=== PATIENT | female | born 1985 | race Caucasian/White ===

== ENCOUNTER 2018-10-23 04:02 | Inpatient (IN) | payer MEDICAID, OTHER ==
[2018-10-23] MEDS ORDERED: ZOFRAN IV PRN (04:05)
[2018-10-23] MEDS ORDERED: TUCKS PAD TP PRN (04:05)
[2018-10-23] MEDS ORDERED: DULCOLAX PR PRN (04:05)
[2018-10-23] MEDS ORDERED: LANSINOH TP PRN (04:05)
[2018-10-23] MEDS ORDERED: BENADRYL PO PRN (04:05)
[2018-10-23] MEDS ORDERED: PHENERGAN PO PRN (04:05)
[2018-10-23] MEDS ORDERED: NORCO 5/325 PO PRN (04:05)
[2018-10-23] MEDS ORDERED: MILK OF MAGNESIA PO PRN (04:05)
--- NOTE | 2018-10-23 04:29 | History and Physical Report ---
History of Present Illness Date of examination: 10/23/18 Date of admission: 10/23/18 04:02 Chief complaint: Active labor with precipitous delivery History of present illness: 32 yo, @ 38.4 wks gestation. She is a [facility] pt. She presented to [facility] triage complete with large amt of bloody show, screaming and pushing. She was transported to room 2009, where she precipitously delivered in the bed. Her was complicated by anemia and GBS positive status. Past History Past Medical History: no pertinent history Past Surgical History: no surgical history Family/Genetic History: diabetes (brother), heart disease (maternal grandmother) Social history: , lives with family, full code - Obstetrical History Expected Date of Delivery: 11/02/18 Actual Gestation: 38 Week(s) 4 Day(s) : 5 Para: 4 Hx # Term Pregnancies: 4 Number of Pregnancies: 0 Spontaneous Abortions: 0 Induced : 0 Number of Living Children: 4 #1 Infant Gender: Male year: 2,[birth year] Birthweight: 2.722 kg Method of Delivery: Vaginal Gestational age at delivery: 40 Complications: none #2 Infant Gender: Female year: 2,007 Birthweight: 2.722 kg Method of Delivery: Vaginal Gestational age at delivery: 40 Complications: none #3 Infant Gender: Female year: 2,011 Birthweight: 2.722 kg Method of Delivery: Vaginal Gestational age at delivery: 40 Complications: none #4 Infant Gender: Male year: 2,013 Birthweight: 2.722 kg Method of Delivery: Vaginal Gestational age at delivery: 40 Complications: none Medications and Allergies Allergies Allergy/AdvReac Type Severity Reaction Status Date / Time No Known Allergies Allergy Verified 04/23/13 13:45 Review of Systems All systems: negative (frequent painful ctxs) - Physical Exam Breasts: Positive: deferred Cardiovascular: Regular rate Lungs: Positive: Normal air movement Abdomen: Positive: other (gravid) Genitourinary (Female): Positive: normal external genitalia, normal perenium Uterus: Positive: other (S=D) Extremities: Positive: normal Deep Tendon Reflex Grade: Normal +2 Results All other labs normal. Assessment and Plan A: 32 yo, @ 38.4 wks Precipitous delivery of viable Multiparous Anemia GBS positive status O + blood type P: Admit to [facility] Routine PP orders Anticipate 24-48 hr hospital stay
--- NOTE | 2018-10-23 04:45 | Procedure Note ---
OB Delivery Note - Delivery Date of Delivery: 10/23/18 (0331) [employer] Secretary And Handicapper: ELLEN THOMAS (RN) Estimated blood loss: other (150 cc) - Vaginal Delivery presentation: vertex Delivery position: OA Intrapartum events: meconium, precipitous labor- <3hr, other(please specify) (GBS positive status with 1 dose of Abt) Delivery induction: none Delivery monitor: external FHT, external uterine Route of delivery: Delivery placenta: spontaneous Delivery cord: nuchal cord (loose x 1), 3 umbilical vessels Episiotomy: none Delivery laceration: none Anesthesia: none Delivery comments: Viable male infant was precipitously delivered in bed, and placed directly to maternal chest. Cord was double clamped and cut by EVELYN Pedersen. Placenta was spontaneously delivered @ 0344, jonnathan and disposed per hospital policy. Cord bld collected per hospital policy. Perineum intact, hemostasis maintained. Mother and baby stable and safe. - A at 1 minute: 8 at 5 minutes: 9 Gender: Male (Weight: 2611 gms 5 lbs 12oz; 17.5 inches)
[2018-10-23] MEDS ORDERED: PITOCin/NS 20 UNIT/1000ML DRIP 20 UNITS/1,000 ML BAG IV SCH (05:00)
[2018-10-23] MEDS ORDERED: SODIUM CHLORIDE FLUSH SYRINGE 10 ML IV NR (05:00)
[2018-10-23] MEDS: IBUPROFEN PO SCH ×2 (12:51→17:41)
[2018-10-23 17:03] LABS: Hematocrit 28.3 % (30.3-42.9); Hemoglobin 9.5 gm/dl (10.1-14.3)
[2018-10-24] MEDS: IBUPROFEN PO SCH ×3 (03:16→17:43)
--- NOTE | 2018-10-24 10:49 | Progress Note ---
Assessment and Plan A: PPD #1 s/p Asymptomatic anemia VSS Stable P: Follow Routine Orders Discharge home pending Peds Subjective - Subjective Date of service: 10/24/18 Principal diagnosis: PPD#1 s/p Interval history: See H&P and delivery note Patient reports: appetite normal, voiding normally, pain well controlled, flatus, ambulating normally, no bowel movement Wright: doing well, other (Breast/Bottle) Objective - Vital Signs Latest vital signs: Vital Signs Temp Pulse Resp BP Pulse Ox 10/24/18 08:46 97.8 F 74 20 123/76 95 10/24/18 03:52 98.4 F 71 20 122/79 97 10/23/18 17:58 98.5 F 81 18 125/81 98 10/23/18 12:43 98.0 F 101 H 18 118/77 96 Intake and Output 10/23/18 10/24/18 10/24/18 23:59 07:59 15:59 Intake Total 760 120 Balance 760 120 Intake: Oral 300 120 Intake, Free Water 460 Other: Total, Intake Amount 300 120 # Voids Void 1 1 - Exam Breasts: Present: normal, Cardiovascular: Present: Regular rate, Normal S1, Normal S2, No murmurs Lungs: Present: Clear to auscultation, Normal air movement Abdomen: Present: normal appearance, soft, normal bowel sounds. Absent: distention Vulva: both: normal Uterus: Present: normal, firm, fundal height below umbilicus (-1) Extremities: Present: normal Deep Tendon Reflex Grade: Normal +2 - Labs Labs: Abnormal lab results 10/23/18 Range/Units 16:04 Hgb 9.5 L (10.1-14.3) gm/dl Hct 28.3 L (30.3-42.9) %
--- NOTE | 2018-10-24 10:51 | Discharge Summary ---
<URMILA - Last Filed: 10/24/18 10:49> Providers - Providers Date of Admission: 10/23/18 04:02 Date of discharge: 10/24/18 Attending physician: SANTA BARNHART MD Primary care physician: SANTA BARNHART MD Hospitalization Reason for admission: active labor, IUP at term Delivery: Procedure details: See H&P and delivery note Episiotomy: none Laceration: none Other procedures: none complications: none Discharge diagnosis: IUP at term delivered Condition at discharge: Good Disposition: DC-01 TO HOME OR SELFCARE Plan - Provider Discharge Summary Activity: routine, no sex for 6 weeks, no heavy lifting 4 weeks, no strenuous exercise Diet: routine Instructions: routine Additional instructions: [] Smoking cessation referral if applicable(refer to patient education folder for contact #) [] Refer to [facility] Booklet Call your doctor immediately for: * Fever > 100.5 * Heavy vaginal bleeding ( >1 pad per hour) * Severe persistent headache * Shortness of breath * Reddened, hot, painful area to leg or breast * Drainage or odor from incision. * Keep incision clean and dry at all times and follow doctor's instructions regarding bathing/showering Return to clinic for exam in 6 weeks - Follow up plan Follow up: SANTA BARNHART MD [Primary Care Provider] - 6 Weeks <ALLISON LANTIGUA - Last Filed: 10/26/18 14:03> Providers - Providers Date of Admission: 10/23/18 04:02 Attending physician: SANTA BARNHART MD Primary care physician: SANTA BARNHART MD Hospitalization Pertinent studies: Laboratory Tests 10/23/18 16:04 Hgb 9.5 L Hct 28.3 L - Discharge Diagnoses (1) Anemia associated with acute blood loss Status: Acute Comment: Asymptomatic. Discharge home on supplemental iron therapy. Plan - Provider Discharge Summary Additional instructions: [] Smoking cessation referral if applicable(refer to patient education folder for contact #) [] Refer to [facility] Booklet Call your doctor immediately for: * Fever > 100.5 * Heavy vaginal bleeding ( >1 pad per hour) * Severe persistent headache * Shortness of breath * Reddened, hot, painful area to leg or breast * Drainage or odor from incision. * Keep incision clean and dry at all times and follow doctor's instructions regarding bathing/showering
[2018-10-25] MEDS: IBUPROFEN PO SCH (02:10)
[2018-10-25 11:33] VITALS: BP 106/50
== END 2018-10-25 12:48 | disposition home or self-care (01) | DRG 806 ==
LOC: LD 04:02 → OB 07:15
PROVIDERS: ADMIT Obstetrics & Gynecology; ATTEND Obstetrics & Gynecology
PROC: 10E0XZZ Delivery of Products of Conception, External Approach (ICD-10-PCS; principal; 2018-10-23)
DX: O62.3 Precipitate labor (principal); D62 Acute posthemorrhagic anemia; Z37.0 Single live birth; O99.824 Streptococcus B carrier state complicating childbirth; O99.02 Anemia complicating childbirth; O77.0 Labor and delivery complicated by meconium in amniotic fluid; O69.81X0 Labor and delivery complicated by cord around neck, without compression, not applicable or unspecified; Z3A.38 38 weeks gestation of pregnancy; Z83.3 Family history of diabetes mellitus; Z82.49 Family history of ischemic heart disease and other diseases of the circulatory system
CPT/HCPCS: 36415; 85014; 85018; G0378